=== PATIENT | male | born 1965 | race African-American/Black ===

== ENCOUNTER → 2019-10-24 | Outpatient (REF) | payer BC ==
[2019-10-24 13:38] LABS: APPEARANCE, URINE CLEAR (CLEAR); BACTERIA, URINE AUTO NEGATIVE (NEGATIVE); BILIRUBIN, URINE AUTO NEGATIVE (NEGATIVE); BLOOD, URINE BLOOD NEGATIVE (NEGATIVE); COLOR, URINE YELLOW (YELLOW); GLUCOSE, URINE (UA) AUTO NEGATIVE (NEGATIVE); KETONE, URINE AUTO NEGATIVE (NEGATIVE); LEUKOCYTE ESTERASE, URINE AUTO NEGATIVE (NEGATIVE); NITRITE, URINE AUTO NEGATIVE (NEGATIVE); PROTEIN, URINE AUTO NEGATIVE (NEGATIVE); RBC, URINE AUTO 0 /HPF (0-3); SPECIFIC GRAVITY URINE AUTO 1.008 (1.002-1.035); SQUAMOUS EPITHELIAL CELL UR AU 0 /HPF (0-6); UROBILINOGEN, URINE AUTO 0.2 mg/dL (0.0-2.0); WBC, URINE AUTO 0 /HPF (0-3)
== END ==
LOC: M SMT 13:12
PROVIDERS: ATTEND Nurse Practitioner Family
DX: R35.1 Nocturia (principal)

== ENCOUNTER → 2020-07-24 | Outpatient (CLI) | payer SELFPAY | LOC: M LABSMTC 11:13 | PROVIDERS: ATTEND Pediatrics | DX: Z11.59 Encounter for screening for other viral diseases (principal) ==

== ENCOUNTER → 2023-12-13 | Outpatient (CLI) | payer BC, OTHER | LOC: M RAD 07:34 | PROVIDERS: ATTEND Nurse Practitioner Family | DX: R11.10 Vomiting, unspecified (principal); Z53.9 Procedure and treatment not carried out, unspecified reason ==

== ENCOUNTER → 2023-12-25 | Outpatient (CLI) | payer BC, OTHER | LOC: M RAD 06:48 | PROVIDERS: ATTEND Internal Medicine Interventional Cardiology | DX: K76.0 Fatty (change of) liver, not elsewhere classified (principal); R10.9 Unspecified abdominal pain ==

== ENCOUNTER → 2023-12-28 | Outpatient (CLI) | payer OTHER | LOC: M RAD 11:28 | PROVIDERS: ATTEND Nurse Practitioner Family | DX: R11.10 Vomiting, unspecified (principal) | CPT/HCPCS: 78264; A9541 ==

== ENCOUNTER 2024-04-08 11:25 | Day surgery (SDC) | payer OTHER, BC ==
[~2024-04-08] VITALS: Ht 185.4 cm; Wt 115.7 kg
[~2024-04-08 11:25] MED LIST: ASPI81CH33 PO; CLOP75TA99 PO; ESCI5SOL3 PO; EZET10TA21 PO; INSULANT SC; IRON65TA2 PO; LISI20TA33 PO; MYRB50TA PO; NOXI1TAB PO; NS 1,000 ML IV ONE; OMEP10CASR PO; POTA10CA70 PO; ROSU10TA61 PO; TRAZ-252 PO
[2024-04-08] MEDS ORDERED: GLUCAGON INJ 1MG VIAL As Ordered ONE (13:57)
[2024-04-08] MEDS ORDERED: hydrALAZINE 20MG/ML 1ML VIAL As Ordered ONE (14:01)
[2024-04-08] MEDS ORDERED: ESMOLOL INJ 100MG/10ML VIAL As Ordered ONE (14:01)
[2024-04-08 14:08] VITALS: TEMP 98.3
[2024-04-08 14:29] VITALS: BP 169/91; O2SAT 95
== END 2024-04-08 14:32 | disposition home or self-care (01) ==
LOC: M OPP 11:25
PROVIDERS: ATTEND Internal Medicine Gastroenterology
DX: Z12.11 Encounter for screening for malignant neoplasm of colon (principal); K64.8 Other hemorrhoids; K57.30 Diverticulosis of large intestine without perforation or abscess without bleeding; I10 Essential (primary) hypertension; E11.9 Type 2 diabetes mellitus without complications; Z86.73 Personal history of transient ischemic attack (TIA), and cerebral infarction without residual deficits; Z79.02 Long term (current) use of antithrombotics/antiplatelets; Z79.2 Long term (current) use of antibiotics; Z79.82 Long term (current) use of aspirin; Z79.84 Long term (current) use of oral hypoglycemic drugs; Z79.899 Other long term (current) drug therapy; Z88.8 Allergy status to other drugs, medicaments and biological substances
CPT/HCPCS: 45378; J0360; J1805

== ENCOUNTER 2024-07-19 17:25 | Emergency (ER) | payer OTHER, BC ==
[~2024-07-19] VITALS: Ht 185.4 cm; Wt 118.2 kg
[~2024-07-19 17:25] MED LIST changes: -NS 1,000 ML IV ONE
[2024-07-19 17:27] VITALS: TEMP 97.7
[2024-07-19 18:38] LABS: BASO # 0.1 10^3/uL (0.0-0.2); BASO % 0.7 % (0.0-1.0); EOS # 0.1 10^3/uL (0.0-0.5); EOS % 1.4 % (0.0-3.0); HEMATOCRIT 46.3 % (42.0-52.0); LYMPH # 4.3 10^3/uL (1.5-5.0); LYMPH % 50.2 % (24.0-44.0); MEAN CORPUSCULAR HEMOGLOBIN 28.4 pg (27.0-33.0); MEAN CORPUSCULAR HGB CONC 32.4 g/dl (32.0-36.5); MEAN CORPUSCULAR VOLUME 87.7 fl (80.0-96.0); MONO % 11.8 % (2.0-8.0); NEUTROPHILS % 35.7 % (36.0-66.0); PLATELET COUNT, AUTOMATED 208 10^3/uL (150-450); RED BLOOD COUNT 5.28 10^6/uL (4.30-6.10); WHITE BLOOD COUNT 8.5 10^3/uL (4.0-10.0)
[2024-07-19 18:40] VITALS: O2SAT 95
[2024-07-19 18:51] LABS: BLOOD UREA NITROGEN 17 MG/DL (9-23); CALCIUM LEVEL 9.6 MG/DL (8.3-10.6); CARBON DIOXIDE LEVEL 25 MMOL/L (20-31); CHLORIDE LEVEL 106 MMOL/L (98-107); CREATININE FOR GFR 1.14 MG/DL (0.70-1.30); GLOMERULAR FILTRATION RATE > 60.0 (>49); GLUCOSE, FASTING 100 MG/DL (74-106); SODIUM LEVEL 138 MMOL/L (136-145)
[2024-07-19] MEDS: methylPREDNISolone 125MG 2ML VIAL IV ONE (19:50)
[2024-07-19] MEDS: PERCOCET 5MG/325MG TAB PO ONE (19:50)
[2024-07-19 20:16] LABS: APPEARANCE, URINE CLEAR (CLEAR); BACTERIA, URINE AUTO NEGATIVE (NEGATIVE); BILIRUBIN, URINE AUTO NEGATIVE (NEGATIVE); BLOOD, URINE BLOOD NEGATIVE (NEGATIVE); COLOR, URINE YELLOW (YELLOW); GLUCOSE, URINE (UA) AUTO 3+ mg/dL (NEGATIVE); KETONE, URINE AUTO NEGATIVE (NEGATIVE); LEUKOCYTE ESTERASE, URINE AUTO NEGATIVE (NEGATIVE); NITRITE, URINE AUTO NEGATIVE (NEGATIVE); PROTEIN, URINE AUTO NEGATIVE (NEGATIVE); RBC, URINE AUTO 0 /HPF (0-3); SPECIFIC GRAVITY URINE AUTO 1.021 (1.002-1.035); SQUAMOUS EPITHELIAL CELL UR AU 0 /HPF (0-6); UROBILINOGEN, URINE AUTO 0.2 mg/dL (0.0-2.0); WBC, URINE AUTO 1 /HPF (0-3)
[2024-07-19 21:43] VITALS: BP 188/103
[2024-07-19] MEDS: MORPHINE 10 MG/ML 1ML VIAL IV ONE (21:43)
[2024-07-19] MEDS ORDERED: PERC5TAB12 PO (22:43)
[2024-07-19] MEDS ORDERED: PRED10TA2 PO (22:43)
[2024-07-19] MEDS: OXYCODONE/APAP 5MG/325MG(HOME DOSE PACK) PO ONE (22:45)
[2024-07-19 23:08] VITALS: BP 170/92
== END 2024-07-19 23:55 | disposition home or self-care (01) ==
LOC: M ED 17:25
DX: M51.36 Other intervertebral disc degeneration, lumbar region (principal); I10 Essential (primary) hypertension; E78.5 Hyperlipidemia, unspecified; F32.9 Major depressive disorder, single episode, unspecified; Z87.891 Personal history of nicotine dependence; Z79.4 Long term (current) use of insulin; Z79.82 Long term (current) use of aspirin; Z79.899 Other long term (current) drug therapy; Z88.8 Allergy status to other drugs, medicaments and biological substances
CPT/HCPCS: 72110; 80048; 81001; 85025; 93005; 93041; 96374; 96375; 99284; J2919

== ENCOUNTER → 2024-07-23 | Outpatient (CLI) | payer BC, OTHER ==
[~2024-07-23] MED LIST changes: +PERC5TAB12 PO; +PRED10TA2 PO
== END ==
LOC: M PLAIMG 10:01
PROVIDERS: ATTEND Physician Assistant Medical
DX: J32.9 Chronic sinusitis, unspecified (principal)

== ENCOUNTER → 2024-08-02 | Outpatient (CLI) | payer BC, OTHER | LOC: M PAIN 08:00 | PROVIDERS: ATTEND Nurse Practitioner Family | DX: M54.16 Radiculopathy, lumbar region (principal); F32.A Depression, unspecified; F41.0 Panic disorder [episodic paroxysmal anxiety]; I10 Essential (primary) hypertension; M50.30 Other cervical disc degeneration, unspecified cervical region; E11.9 Type 2 diabetes mellitus without complications; E78.5 Hyperlipidemia, unspecified; I73.00 Raynaud's syndrome without gangrene; G47.30 Sleep apnea, unspecified; Z79.891 Long term (current) use of opiate analgesic; Z79.82 Long term (current) use of aspirin; Z79.4 Long term (current) use of insulin; Z79.02 Long term (current) use of antithrombotics/antiplatelets; Z79.899 Other long term (current) drug therapy; Z88.8 Allergy status to other drugs, medicaments and biological substances ==

== ENCOUNTER → 2024-08-17 | Outpatient (CLI) | payer OTHER, BC | LOC: M RAD 09:53 | PROVIDERS: ATTEND Nurse Practitioner Family | DX: M54.16 Radiculopathy, lumbar region (principal); M47.897 Other spondylosis, lumbosacral region; M51.27 Other intervertebral disc displacement, lumbosacral region ==

== ENCOUNTER → 2024-08-29 | Outpatient (CLI) | payer BC, OTHER | LOC: M PAIN 16:30 | PROVIDERS: ATTEND Nurse Practitioner Family | DX: M51.16 Intervertebral disc disorders with radiculopathy, lumbar region (principal); G89.29 Other chronic pain; F32.A Depression, unspecified; F41.0 Panic disorder [episodic paroxysmal anxiety]; K21.9 Gastro-esophageal reflux disease without esophagitis; I10 Essential (primary) hypertension; E11.9 Type 2 diabetes mellitus without complications; E78.5 Hyperlipidemia, unspecified; I73.00 Raynaud's syndrome without gangrene; G47.30 Sleep apnea, unspecified; Z87.891 Personal history of nicotine dependence; Z79.891 Long term (current) use of opiate analgesic; Z79.4 Long term (current) use of insulin; Z79.02 Long term (current) use of antithrombotics/antiplatelets; Z79.82 Long term (current) use of aspirin; Z79.899 Other long term (current) drug therapy; Z88.8 Allergy status to other drugs, medicaments and biological substances ==

== ENCOUNTER → 2024-10-17 | Outpatient (CLI) | payer OTHER, BC ==
[~2024-10-17] MED LIST changes: +AMLO1TAB25; +CHLO125TA PO
== END ==
LOC: M PAIN 12:45
PROVIDERS: ATTEND Anesthesiology
DX: M51.16 Intervertebral disc disorders with radiculopathy, lumbar region (principal); G89.29 Other chronic pain; F32.A Depression, unspecified; F41.0 Panic disorder [episodic paroxysmal anxiety]; K21.9 Gastro-esophageal reflux disease without esophagitis; I10 Essential (primary) hypertension; E11.9 Type 2 diabetes mellitus without complications; E78.5 Hyperlipidemia, unspecified; I73.00 Raynaud's syndrome without gangrene; G47.30 Sleep apnea, unspecified; Z87.891 Personal history of nicotine dependence; Z79.891 Long term (current) use of opiate analgesic; Z79.4 Long term (current) use of insulin; Z79.02 Long term (current) use of antithrombotics/antiplatelets; Z79.82 Long term (current) use of aspirin; Z79.899 Other long term (current) drug therapy; Z88.8 Allergy status to other drugs, medicaments and biological substances

== ENCOUNTER 2024-10-18 10:58 | Emergency (ER) | payer OTHER, BC ==
[~2024-10-18] VITALS: Ht 185.4 cm; Wt 117.7 kg
[~2024-10-18 10:58] MED LIST changes: -AMLO1TAB25; -CHLO125TA PO
[2024-10-18] MEDS ORDERED: AMLO1TAB25 (11:10)
[2024-10-18 13:01] LABS: BLOOD UREA NITROGEN 20 MG/DL (9-23); CALCIUM LEVEL 10.2 MG/DL (8.3-10.6); CARBON DIOXIDE LEVEL 26 MMOL/L (20-31); CHLORIDE LEVEL 105 MMOL/L (98-107); CREATININE FOR GFR 1.17 MG/DL (0.70-1.30); GLOMERULAR FILTRATION RATE > 60.0 (>49); GLUCOSE, FASTING 198 MG/DL (74-106); POTASSIUM SERUM 4.5 MMOL/L (3.5-5.1); SODIUM LEVEL 140 MMOL/L (136-145)
[2024-10-18] MEDS: CHLORTHALIDONE 25 MG TAB PO ONE (13:06)
[2024-10-18 14:01] VITALS: BP 150/88
[2024-10-18] MEDS ORDERED: CHLO125TA PO (14:04)
[2024-10-18 14:11] VITALS: O2SAT 97
[2024-10-18 14:18] VITALS: TEMP 97.8
== END 2024-10-18 14:20 | disposition home or self-care (01) ==
LOC: M ED 10:58
DX: I10 Essential (primary) hypertension (principal); E11.9 Type 2 diabetes mellitus without complications; Z79.82 Long term (current) use of aspirin; Z79.4 Long term (current) use of insulin; Z79.899 Other long term (current) drug therapy; Z88.8 Allergy status to other drugs, medicaments and biological substances

== ENCOUNTER → 2024-12-09 | Outpatient (CLI) | payer OTHER ==
[~2024-12-09] MED LIST changes: +AMLO1TAB25; +CHLO125TA PO
== END ==
LOC: M RAD 16:05
PROVIDERS: ATTEND Orthopaedic Surgery
DX: M16.0 Bilateral primary osteoarthritis of hip (principal)

== ENCOUNTER → 2025-01-31 | Outpatient (CLI) | payer BC, OTHER | LOC: M RAD 07:33 | PROVIDERS: ATTEND Otolaryngology | DX: J32.0 Chronic maxillary sinusitis (principal) ==

== ENCOUNTER → 2025-08-08 | Outpatient (CLI) | payer OTHER, BC ==
[~2025-08-08] MED LIST changes: +AZEL1SPR3 NARES; +DULA3PEN SC; +ENTR1TAB7 PO; -EZET10TA21 PO; +EZET10TA57 PO; +JARD1TAB3 PO; +METO1TAB33 PO
[2025-08-08 09:08] LABS: PLATELET COUNT, AUTOMATED 246 10^3/uL (150-450)
[2025-08-08 09:41] LABS: ALT/SGPT 29.0 U/L (7.0-40); AST/SGOT 16.0 U/L (<34); CALCIUM LEVEL 9.2 MG/DL (8.3-10.6); CARBON DIOXIDE LEVEL 26.0 MMOL/L (20-31); CHLORIDE LEVEL 107.0 MMOL/L (98-107); CHOLESTEROL LEVEL 80.0 MG/DL (<200); CHOLESTEROL RISK RATIO 2.54 (<5); CREATININE FOR GFR 1.37 MG/DL (0.70-1.30); GLOMERULAR FILTRATION RATE 58.3 (>49); LDL CHOLESTEROL 22.2 MG/DL (<100); MAGNESIUM LEVEL 2.2 MG/DL (1.8-2.4); NON-HDL-C 48.6 MG/DL; POTASSIUM SERUM 3.9 MMOL/L (3.5-5.1); SODIUM LEVEL 139.0 MMOL/L (136-145); TRIGLYCERIDES LEVEL 132.0 MG/DL (<150)
== END ==
LOC: M RAD 08:29
PROVIDERS: ATTEND Otolaryngology
DX: I49.40 Unspecified premature depolarization (principal); E78.00 Pure hypercholesterolemia, unspecified

== ENCOUNTER → 2025-08-13 | Outpatient (CLI) | payer OTHER, BC | LOC: M EKG 08:50 | PROVIDERS: ATTEND Internal Medicine Cardiovascular Disease | DX: I49.40 Unspecified premature depolarization (principal); I44.0 Atrioventricular block, first degree; G47.33 Obstructive sleep apnea (adult) (pediatric) ==

== ENCOUNTER → 2025-08-29 | Outpatient (CLI) | payer OTHER, BC ==
[2025-08-29 10:37] LABS: CALCIUM LEVEL 9.4 MG/DL (8.3-10.6); CARBON DIOXIDE LEVEL 30.0 MMOL/L (20-31); CHLORIDE LEVEL 105.0 MMOL/L (98-107); CREATININE FOR GFR 1.34 MG/DL (0.70-1.30); GLOMERULAR FILTRATION RATE 59.9 (>49); POTASSIUM SERUM 3.8 MMOL/L (3.5-5.1); SODIUM LEVEL 142.0 MMOL/L (136-145)
== END ==
LOC: M LAB 09:40
PROVIDERS: ATTEND Nurse Practitioner Family
DX: I10 Essential (primary) hypertension (principal)

== ENCOUNTER → 2025-09-10 | Outpatient (CLI) | payer OTHER, BC ==
[~2025-09-10] MED LIST changes: -ROSU10TA61 PO; +ROSU10TA90 PO
[2025-09-10 12:01] LABS: CALCIUM LEVEL 8.8 MG/DL (8.3-10.6); CARBON DIOXIDE LEVEL 31.0 MMOL/L (20-31); CHLORIDE LEVEL 106.0 MMOL/L (98-107); CREATININE FOR GFR 1.44 MG/DL (0.70-1.30); GLOMERULAR FILTRATION RATE 54.9 (>49); MAGNESIUM LEVEL 2.2 MG/DL (1.8-2.4); POTASSIUM SERUM 4.4 MMOL/L (3.5-5.1); SODIUM LEVEL 143.0 MMOL/L (136-145)
== END ==
LOC: M LAB 10:19
PROVIDERS: ATTEND Internal Medicine Cardiovascular Disease
DX: Z01.818 Encounter for other preprocedural examination (principal); I10 Essential (primary) hypertension

== ENCOUNTER → 2025-10-07 | Outpatient (CLI) | payer OTHER, BC | LOC: M RAD 07:31 | PROVIDERS: ATTEND Nurse Practitioner Family | DX: I10 Essential (primary) hypertension (principal) ==

== ENCOUNTER → 2025-10-08 | Outpatient (CLI) | payer OTHER, BC | LOC: M PLAIMG 10:34 | PROVIDERS: ATTEND Internal Medicine Cardiovascular Disease | DX: I49.40 Unspecified premature depolarization (principal); R94.31 Abnormal electrocardiogram [ECG] [EKG]; G47.33 Obstructive sleep apnea (adult) (pediatric); I08.8 Other rheumatic multiple valve diseases ==

== ENCOUNTER → 2025-10-16 | Outpatient (CLI) | payer OTHER, BC | LOC: M PLAIMG 07:29 | PROVIDERS: ATTEND Otolaryngology | DX: J32.0 Chronic maxillary sinusitis (principal); J34.2 Deviated nasal septum ==

== ENCOUNTER → 2025-10-16 | Outpatient (CLI) | payer OTHER, BC ==
[2025-10-16 09:57] LABS: CALCIUM LEVEL 9.1 MG/DL (8.3-10.6); CARBON DIOXIDE LEVEL 29.0 MMOL/L (20-31); CHLORIDE LEVEL 103.0 MMOL/L (98-107); CREATININE FOR GFR 1.26 MG/DL (0.70-1.30); GLOMERULAR FILTRATION RATE 64.5 (>49); MAGNESIUM LEVEL 2.1 MG/DL (1.8-2.4); POTASSIUM SERUM 3.9 MMOL/L (3.5-5.1); SODIUM LEVEL 139.0 MMOL/L (136-145)
== END ==
LOC: M LAB 08:17
PROVIDERS: ATTEND Internal Medicine Cardiovascular Disease
DX: I10 Essential (primary) hypertension (principal)